=== PATIENT | female | born 1970 ===

== ENCOUNTER 2018-06-04 08:05 | Day surgery (SDC) | payer BC ==
[2018-05-30 14:16] VITALS: BMI 36.8
[~2018-06-04 08:05] MED LIST: Bupivacaine HCl 0.5% PF (30 ml) Inj ONE; Lidocaine 2% MPF (5 ml) Inj ONE; ceFAZolin 1 gm FROZEN Premix 2 GM/100 ML ML IVPB ONE
[2018-06-04] MEDS ORDERED: Midazolam 2 MG/2 ML VIAL ONE ×2 (09:12→09:35)
[2018-06-04] MEDS ORDERED: Propofol 10 mg/ml Inj (20 ML) ONE ×2 (09:13→09:37)
[2018-06-04] MEDS ORDERED: HYDROmorphone 0.5 mg/0.5 ml ISec IVP PRN (10:07)
--- NOTE | 2018-06-04 10:09 | PCM.SURG1 ---
Surgeon's Initial Post Op Note - Surgeon's Notes Surgeon: Dr. Jam Allen Explosive Operator: Fernando Chambers PGY2 Type of Anesthesia: IV Sedation, Local (18cc 1:1 mixtuer 2% lidocaine) Anesthesia Administered By: Dr. Welch Pre-Operative Diagnosis: Left foot plantar fascial tear Operative Findings: See operative report. m: 3-0 nylon. i: 12cc PRP Post-Operative Diagnosis: same Operation Performed: left foot plantar fasciotomy, PRP injection Specimen/Specimens Removed: n/a Estimated Blood Loss: EBL {In ML}: 1 Blood Products Given: N/A Drains Used: No Drains Post-Op Condition: Good Date of Surgery/Procedure: 06/04/18 Time of Surgery/Procedure: 10:10
[2018-06-04] MEDS ORDERED: Oxycodone/Acetaminophen 5/325 mg Tab PO PRN ×2 (10:13)
[2018-06-04 10:19] VITALS: O2SAT 100
[2018-06-04 11:25] VITALS: RESP 18
[2018-06-04 13:39] VITALS: BP 137/80; PULSE 85; TEMP 97.8
--- NOTE | 2018-06-11 10:57 | OP ---
PROCEDURE DATE: 06/04/2018 PREOPERATIVE DIAGNOSIS: Left foot plantar fascial tear. POSTOPERATIVE DIAGNOSIS: Left foot plantar fascial tear. PROCEDURE: Left foot plantar fasciotomy and PRP injection. SURGEON: Jam Allen DPM KICK PRESS OPERATOR: Dianne Chambers DPM ANESTHESIA: IV sedation with local, 18 mL of 1:1 mixture of 2% lidocaine and 0.25% Marcaine. ANESTHESIOLOGIST: Veronica Welch CRNA INDICATIONS: The patient is a 47-year-old female with the above-mentioned diagnosis. The patient is being treated by Dr. Jam Allen's office on an outpatient basis because she has exhausted multiple forms of conservative treatment. The patient seeks surgical intervention at this time. The patient signed a consent after careful explanation of risks, benefits, alternatives and complications of the procedure and wishes to proceed. No guarantees were given nor implied. N.p.o. was confirmed prior to bringing the patient to the operating room. PREPARATION: The patient was brought into the operating room and placed on the operating room table in the supine position. Timeout was performed for identification of the correct patient and procedure. A well-padded pneumatic ankle tourniquet was placed under left lower extremity in supramalleolar position. After the induction of IV sedation, a local injection of 18 mL of 1:1 mixture of 2% lidocaine and 0.25% Marcaine plain was administered in a proximal V-type fashion. Once local anesthesia was achieved, the foot was then prepped and draped in normal sterile manner. The left lower extremity was prepped and draped in normal sterile manner. An Esmarch was used to exsanguinate the limb. Tourniquet was inflated to 250 mmHg, and the procedure begun. DESCRIPTION OF PROCEDURE: Left foot plantar fasciotomy: Attention was directed to the plantar aspect of the left foot where under C-arm guidance and using the spinal needle at the location of plantar head, was identified. A 1-cm linear longitudinal incision was made at the central aspect of the patient's left heel using a 15 blade. The incision was deepened through subcutaneous tissue. The dissection was carried down to the level of the heel spur and plantar fascial band. The range of motion, after the 15 blade at the medial band of the plantar fascia was released and it was confirmed using a curved hemostat to feel for any remaining fibers. The wound was then flushed with copious amounts of sterile normal saline. The skin was reapproximated and coapted using 3-0 nylon in a simple suture technique. Left heel PRP injection: At this time, a total of 12 mL of autologous PRP was injected into the left heel, localized to the area of maximal tenderness, which was evaluated preoperatively. The area was then cleansed and dressed with dry sterile dressing. POSTOPERATIVE CONDITION: The patient tolerated the anesthesia and procedure well and was escorted to the recovery room with vital signs stable and neurovascular status intact to the left lower extremity. The patient is to be weightbearing as tolerated in Cam walker. The patient will follow up with Dr. Allen in his office on an outpatient basis. Dianne Chambers DPM Jam Allen DPM
== END 2018-06-04 13:12 | disposition home or self-care (01) ==
LOC: C.SDS 08:05
PROVIDERS: ATTEND Podiatrist
DX: M72.2 Plantar fascial fibromatosis (principal)
CPT/HCPCS: 28008; J0690; J2250; J2704; J3010